=== PATIENT | female | born 1950 | race Hispanic/Latino ===

== ENCOUNTER 2018-01-08 13:11 | Emergency (ER) | payer MEDICAID, OTHER ==
[2018-01-08 13:11] VITALS: BMI 22.4
[2018-01-08 13:43] VITALS: BP 112/67; PULSE 83; RESP 20; TEMP 98; O2SAT 98
--- NOTE | 2018-01-08 15:31 | C.PDOC ---
History Of Present Illness 67 years old female with PMHx of chronic knee pain (2014), presents to ED requesting medications for chronic right knee pain. Patient has multiple visits to ER with similar complaints. [facility] and it is unclear as to why she cames in today. Denies any other complaints. Time Seen by Provider: 01/08/18 15:19 Chief Complaint (Nursing): Lower Extremity Problem/Injury History Per: Patient History/Exam Limitations: no limitations Onset/Duration Of Symptoms: Hrs Current Symptoms Are (Timing): Still Present Recent travel outside of the [place]: No Past Medical History Reviewed: Historical Data, Nursing Documentation, Vital Signs Vital Signs: Last Vital Signs Temp 98.0 F 01/08/18 13:40 Pulse 83 01/08/18 13:40 Resp 20 01/08/18 13:40 BP 112/67 01/08/18 13:40 Pulse Ox 98 01/08/18 13:40 - Medical History PMH: Back Problems, Seizures, Chronic Pain - [facility] Procedures INSERT INDWELLING CATH (06/04/14) Family History: States: Unknown Family Hx - Social History Hx Tobacco Use: No Hx Alcohol Use: No Hx Substance Use: No - Immunization History Hx Tetanus Toxoid Vaccination: No Hx Influenza Vaccination: No Hx Pneumococcal Vaccination: No Review Of Systems Constitutional: Negative for: Fever, Chills Gastrointestinal: Negative for: Nausea, Vomiting, Abdominal Pain, Diarrhea Musculoskeletal: Positive for: Other (Right knee pain ) Skin: Negative for: Rash Neurological: Negative for: Weakness, Numbness Physical Exam - Physical Exam Appears: Non-toxic, No Acute Distress, Other (Argumentative. Confrontational. ) Skin: Normal Color, Warm, Dry, No Rash Extremity: Normal ROM, Other (Patient does not allow evaluation of her right knee so she stood up and walked away. Declined narcotics. ) Neurological/Psych: Oriented x3, Normal Speech ED Course And Treatment O2 Sat by Pulse Oximetry: 98 (RA) Pulse Ox Interpretation: Normal Reevaluation Time: 15:30 (when advised she would not receive any narcotic pain relievers in the ED nor Rx for same, pt immediatly stood up (apparently painlessly) and further argued w this MD. Pt declined to have R knee evaluated. ) Reassessment Condition: Improved Medical Decision Making Medical Decision Making: argumentative, baseline gait seeking pain meds h/o same pt in fdc. no acute issues today- asking why she's in a fdc. [place] 43 Rx's from 5 prescribers defer further w/u and f/u with multiple prescribers for chronic issues. 01/02/18: Refilled Valium 10 mg #28 tabs 01/05/18: Refilled Valium 10 mg #60 tabs 3 days apart, 2 different prescribers. Chronic pain /anxiety/drug seeking Disposition Doctor Will See Patient In The: Office Counseled Patient/Family Regarding: Studies Performed, Diagnosis - Disposition Referrals: [facility] [Outside] [facility] [Outside] [facility] [Outside] [facility] [Outside] [facility] [Outside] Disposition: HOME/ ROUTINE Disposition Time: 15:33 Condition: GOOD Additional Instructions: seek eval and med refills from your PMD in [facility] or our [facility] [place] reviewed shows 5 different prescribers. Instructions: Chronic Pain (DC) Forms: [facility] ([place]) - Clinical Impression Clinical Impression: Chronic pain disorder, Drug-seeking behavior - Scribe Statement The provider has reviewed the documentation as recorded by the Scribolivia Perdomo All medical record entries made by the Scribe were at my direction and personally dictated by me. I have reviewed the chart and agree that the record accurately reflects my personal performance of the history, physical exam, medical decision making, and the department course for this patient. I have also personally directed, reviewed, and agree with the discharge instructions and disposition.
== END 2018-01-08 16:07 | disposition home or self-care (01) ==
LOC: C.ER 13:11
DX: G89.29 Other chronic pain (principal); Z76.5 Malingerer [conscious simulation]

== ENCOUNTER 2018-02-22 09:16 | Emergency (ER) | payer OTHER ==
[2018-02-22 09:26] VITALS: BMI 23.4
[2018-02-22 09:31] VITALS: BP 123/79; PULSE 89; RESP 18; TEMP 97.6; O2SAT 100
--- NOTE | 2018-02-22 09:51 | C.PDOC ---
History Of Present Illness 67 yo female, presents with right knee and ankle pain. pt states sustained injury in oct, after fall. due for surgery, but has not recieved yet. states friend stepped on ankle a few weeks ago, and c/o of pain to ankle. no other injury or complain. [place] reviewed [facility] narcotic rx. Time Seen by Provider: 02/22/18 09:35 Chief Complaint (Nursing): Lower Extremity Problem/Injury Past Medical History Vital Signs: Last Vital Signs Temp 97.6 F 02/22/18 09:26 Pulse 89 02/22/18 09:26 Resp 18 02/22/18 09:26 BP 123/79 02/22/18 09:26 Pulse Ox 100 02/22/18 09:26 - Medical History PMH: Arthritis, Back Problems, Fractures, Rheumatoid Arthritis, Seizures, Chronic Pain - [facility] Procedures INSERT INDWELLING CATH (06/04/14) Family History: States: Unknown Family Hx - Social History Hx Tobacco Use: No Hx Alcohol Use: No Hx Substance Use: No - Immunization History Hx Tetanus Toxoid Vaccination: No Hx Influenza Vaccination: No Hx Pneumococcal Vaccination: No Review Of Systems Musculoskeletal: Positive for: Leg Pain Physical Exam - Physical Exam Appears: Well, No Acute Distress Skin: Normal Color, Warm, Dry Eye(s): bilateral: Normal Inspection, PERRL, EOMI Nose: Normal Throat: Normal Neck: Normal Cardiovascular: Rhythm Regular Respiratory: Normal Breath Sounds Gastrointestinal/Abdominal: Normal Exam Back: Normal Inspection Extremity: Normal ROM, Tenderness (minimal right knee and right ankle, in brace), No Deformity, No Swelling ED Course And Treatment O2 Sat by Pulse Oximetry: 100 Medical Decision Making Medical Decision Making: xr pending, will need repeat outpt fu. xr shows age indeterminate tibial plateu fx. reviewd pt old xr. no interval chagne. discussed with dr collazo investigation manager. agrees with cont outpt managment. pt with knee immobilzier. offered new one, she refuses. 02/12/2018 2 02/05/2018 oxycodone-acetaminophen 10-325 mg tablet 120 25 [facility] [place] 02/05/2018 2 11/03/2017 carisoprodol 250 mg tablet 120 30 [facility] [place] 02/01/2018 2 01/29/2018 diazepam 10 mg tablet 60 30 [facility] [place] 01/30/2018 2 11/03/2017 carisoprodol 250 mg tablet 10 3 [facility] [place] 01/27/2018 2 11/03/2017 carisoprodol 250 mg tablet 10 2 [facility] [place] 01/17/2018 2 01/12/2018 oxycodone-acetaminophen 10-325 mg tablet 120 25 [facility] [place] 01/14/2018 2 11/03/2017 carisoprodol 250 mg tablet 30 7 [facility] [place] 01[place]10/2018 2 01/09/2018 temazepam 30 mg capsule 30 30 [facility] [place] 01/08/2018 2 11/03/2017 carisoprodol 250 mg tablet 30 7 [facility] [place] 01/05/2018 2 01/01/2018 diazepam 10 mg tablet 60 30 [facility] [place] 01/02/2018 1 01/02/2018 diazepam 10 mg tablet 28 14 [facility] [place] 12/28/2017 1 12/28/2017 carisoprodol 250 mg tablet 30 7 [facility] [place] 12/20/2017 2 12/20/2017 oxycodone-acetaminophen 10-325 mg tablet 120 25 [facility] [place] 12/18/2017 1 12/18/2017 carisoprodol 250 mg tablet 30 7 [facility] [place] 12/16/2017 1 12/16/2017 carisoprodol 250 mg tablet 24 6 [facility] [place] 12/09/2017 1 12/09/2017 carisoprodol 250 mg tablet 30 7 [facility] [place] 12[place]08/2017 1 12/08/2017 clonazepam 1 mg tablet 30 30 [facility] [place] 11/27/2017 1 11/27/2017 diazepam 10 mg tablet 30 15 [facility] [place] 11/22/2017 1 11/22/2017 carisoprodol 250 mg tablet 30 7 [facility] [place] 11/17/2017 1 11/17/2017 oxycodone-acetaminophen 10-325 mg tab 30 5 [facility] [place] 11[place]13/2017 2 11/03/2017 temazepam 30 mg capsule 30 30 [facility] [place] 11/10/2017 1 11/10/2017 carisoprodol 250 mg tablet 30 7 [facility] [place] 11/03/2017 2 11/03/2017 carisoprodol 250 mg tablet 30 7 [facility] [place] 10/21/2017 2 10/18/2017 carisoprodol 250 mg tablet 28 7 [facility] [place] 10/18/2017 2 10/17/2017 diazepam 10 mg tablet 60 30 [facility] [place] 10/06/2017 2 10/05/2017 temazepam 30 mg capsule 30 30 [facility] [place] 09/21/2017 2 09/20/2017 carisoprodol 250 mg tablet 28 7 [facility] [place] 09/18/2017 2 09/18/2017 diazepam 10 mg tablet 60 30 [facility] [place] 09/09/2017 2 09/08/2017 temazepam 30 mg capsule 30 30 [facility] [place] 08/29/2017 2 08/28/2017 carisoprodol 250 mg tablet 28 7 [facility] [place] 08/21/2017 2 08/21/2017 diazepam 10 mg tablet 60 30 [facility] [place] 08/04/2017 2 08/04/2017 oxycodone-acetaminophen 10-325 mg tablet 120 25 [facility] [place] 07/17/2017 2 07/17/2017 diazepam 10 mg tablet 60 30 [facility] [place] 07/14/2017 2 07/14/2017 oxycodone-acetaminophen 10-325 mg tablet 120 25 [facility] [place] 07/11/2017 2 07/07/2017 temazepam 30 mg capsule 30 30 [facility] [place] 06/22/2017 2 06/21/2017 diphenoxylate-atropine 2.5-0.025 mg tablet 20 6 [facility] [place] 06/19/2017 2 06/19/2017 diazepam 10 mg tablet 60 30 [facility] [place] 06[place]09/2017 2 06/09/2017 oxycodone-acetaminophen 10-325 mg tablet 120 20 [facility] [place] 06/05/2017 2 06/05/2017 temazepam 30 mg capsule 30 30 [facility] [place] 05/22/2017 2 05/22/2017 oxycodone-acetaminophen 10-325 mg tablet 120 20 [facility] [place] 05/21/2017 2 05/18/2017 diazepam 10 mg tablet 60 30 [facility] [place] 05/08/2017 2 05/08/2017 temazepam 30 mg capsule 30 30 [facility] [place] 04/23/2017 2 04/21/2017 diazepam 10 mg tablet 60 30 [facility] [place] 04/21/2017 2 04/21/2017 oxycodone-acetaminophen 10-325 mg tablet 120 20 [facility] [place] 04/12/2017 2 04/12/2017 temazepam 30 mg capsule 30 30 [facility] [place] 03/30/2017 2 03/29/2017 diazepam 10 mg tablet 60 30 [facility] [place] 03/27/2017 2 03/27/2017 oxycodone-acetaminophen 10-325 mg tablet 120 20 [facility] [place] 03/08/2017 2 01/24/2017 temazepam 30 mg capsule 30 30 [facility] 03/01/2017 2 03/01/2017 oxycodone-acetaminophen 10-325 mg tablet 120 25 [facility] [place] 02/24/2017 2 02/23/2017 diazepam 10 mg tablet 60 30 [facility] [place] Disposition - Disposition Referrals: Kina Fair MD [Staff Provider] - Disposition: HOME/ ROUTINE Disposition Time: 11:35 Condition: STABLE Additional Instructions: return to er with worsening symptoms or concerns. Prescriptions: RX: Naproxen [Naprosyn] 500 mg PO BID PRN #14 tablet PRN Reason: Pain, Mild (1-3) Instructions: Tibial Plateau Fracture, Tibia Fracture Forms: [facility] ([place]) - Clinical Impression Clinical Impression: Tibial plateau fracture
--- NOTE | 2018-02-22 10:30 | RAD ---
Date of service: 02/22/2018 PROCEDURE: Right Ankle Radiographs. HISTORY: ankle pain COMPARISON: None available. FINDINGS: BONES: Normal. No fracture. JOINTS: Normal. No osteoarthritis. Ankle mortise maintained. Talar dome intact SOFT TISSUES: Normal. OTHER FINDINGS: None. IMPRESSION: Normal right ankle radiographs.
--- NOTE | 2018-02-22 10:42 | RAD ---
PROCEDURE: Right knee Radiographs. HISTORY: chronic knee pain COMPARISON: None available. FINDINGS: BONES: Lucency involving the lateral tibial plateau, possibly fracture line with intra-articular extension. Degenerative changes including tenting of the intracondylar notch. JOINTS: No dislocation. JOINT EFFUSION: Small suprapatellar joint effusion. OTHER FINDINGS: None. IMPRESSION: Lucency involving the lateral tibial plateau, possibly age indeterminate fracture with intra-articular extension. Recommend clinical correlation and CT if indicated. Small suprapatellar joint effusion. Degenerative changes including tenting of the intracondylar notch.
== END 2018-02-22 11:24 | disposition home or self-care (01) ==
LOC: C.ER 09:16
DX: S82.141A Displaced bicondylar fracture of right tibia, initial encounter for closed fracture (principal); W19.XXXA Unspecified fall, initial encounter
CPT/HCPCS: 73562; 73610; 96372; 99283; J1885